=== PATIENT | female | born 1935 | race Caucasian/White ===

== ENCOUNTER 2017-02-08 19:45 | Inpatient (IN) | payer MEDICARE ==
[2017-02-08] VITALS (7 sets, daily range): BP systolic 123–169; BP diastolic 53–73; PULSE 77–92; RESP 14–17; O2SAT 98–100
[~2017-02-08] VITALS: Ht 160 cm; Wt 62.8 kg
[~2017-02-08 19:45] MED LIST: ALPR0.254 PO; AZEL137S11 NS; CARV6.252 PO; CLOP75TA28 PO; ESTR1PAT79 TD; LOSA25TA21 PO; LYSI500T3 PO; PRAM0.5T10 PO; SIMV40TA5 PO; TRIA1TAB3 PO
--- NOTE | 2017-02-08 19:48 | ED.REPORT ---
HPI-General Illness Date of Service Feb 08, 2017 ED Provider: Michael Jim DO Pt is a 81 year old female with a history of HTN who presents to the ED via EMS complaining of lightheadedness when standing onset today. She c/o associated weakness, diarrhea, and melena. She denies vomiting, ulcer, low blood pressure, and diverticulitis. Pt also denies history of anemia. The pt reports that she saw Dr. Liang early today and she was feeling well. She reports that she is taking blood thinners. Per EMS, the pt was orthostatic upon arrival with no SP. Nursing Notes Stated Complaint: SUDDEN ONSET OF WEAKNESS Chief Complaint: Lightheadedness Nursing Notes Reviewed: Yes Allergies: Coded Allergies: Penicillins (Verified Allergy, Intermediate, hives, 02/08/17) atorvastatin (Verified Allergy, Intermediate, MUSCLE ACHES, 02/08/17) lisinopril (Verified Allergy, Intermediate, COUGH, 02/08/17) miconazole (Verified Allergy, Intermediate, makes wound worse, 02/08/17) bacitracin (Verified Allergy, Unknown, 02/08/17) SORES DON'T HEAL carbidopa (Verified Allergy, Unknown, 02/08/17) neomycin (Verified Allergy, Unknown, 02/08/17) SORES DON'T HEAL polymyxin B (Verified Allergy, Unknown, 02/08/17) SORES DON'T HEAL Scheduled Azelastine HCl (Azelastine HCl) 137 Mcg/0.137 Ml [place].pump 137 MCG NS BID Carvedilol (Carvedilol) 6.25 Mg Tablet 6.25 MG PO BID Clopidogrel (Clopidogrel) 75 Mg Tablet 75 MG PO DAILY Estradiol 0.075 mg/24 hr Patch (Estradiol 0.075 mg/24 hr Patch) 1 Each Patch.tdwk 1 EACH TD QW Pramipexole Dihydrochloride (Pramipexole Dihydrochloride) 0.5 Mg Tablet 0.25 MG PO TID Simvastatin (Simvastatin) 40 Mg Tablet 40 MG PO HS Triamterene/HCTZ 37.5-25 mg (Triamterene/HCTZ 37.5-25 mg) 1 Each Tablet 1 EACH PO DAILY Scheduled PRN Alprazolam (Alprazolam) 0.25 Mg Tablet 0.25 MG PO TID PRN PRN For Anxiety Miscellaneous Medications Losartan Potassium (Losartan Potassium) 25 Mg Tablet 25 MG PO Lysine (Lysine) 500 Mg Tablet 500 MG PO General Time Seen by MD: 19:46 Chief Complaint Other (Lightheadedness) Hx Obtained From: EMS Arrived By: Ambulance Sudden in Onset?: No Onset Occurred: 1 - 4 hours ago Symptom Duration: Intermittent Severity: Current: No pain currently Severity: Maximum: No pain Recent Healthcare: Recent doctor visit Similar Sx Previous: No Past Medical History Past Medical History Arthritis HTN Past Surgical History Lore Ductis - Heart Reports: , Tonsillectomy Smoking History Never Smoker Social History Alcohol Use: Denies alcohol use Drug Use: Denies drug use Other Social History: Good social support Review of Systems Full Review of Systems Constitutional: Reports: Weakness - generalized GI: Reports: Diarrhea, Melena, Denies: Vomiting Neurologic: Reports: Change LOC, Lightheaded Physical Exam Vital Signs Vital Signs Date Time Temp Pulse Resp B/P Pulse Ox O2 Delivery O2 Flow Rate FiO2 02/08/17 22:33 83 14 151/53 99 Room Air 02/08/17 21:27 86 16 123/73 100 Room Air 02/08/17 20:01 92 129/73 02/08/17 19:59 87 146/63 02/08/17 19:50 36.4 77 16 169/59 100 Room Air Initial VS: Reviewed General/Constitutional: Well-developed, Well-nourished Head / Eyes: Atraumatic, Normocephalic, PERRL ENT: Mucous membranes moist, Conjunctiva normal, No scleral icterus Neck: Supple, Non-tender, Full range of motion Respiratory: Breath sounds normal, Clear to auscultation, No respiratory distress Cardiovascular: Regular rate & rhythm, Heart sounds normal, Intact distal pulses Abdomen / GI: Soft, Non-tender Extremities: Vascular intact, Neuro intact Skin: Warm, Dry, No cyanosis Neurologic: Alert, Oriented, Nonfocal Psychiatric: Mood/affect normal, Behavior normal General/Constitutional: Awake, Alert, Cooperative, Not toxic appearing Appearance / Presentation: Positive: Pale RECTUM: Heme positive dark charcoal colored stool. Interpretation & Diagnostics Lab Results Interpretation Result Diagram: 02/08/17193902/08/171939 Test 02/08/17 19:40 White Blood Count 11.4th/mm3 (3.8-10.1) Red Blood Count 2.88mil/mm3 (3.90-5.20) Hemoglobin 9.4g/dL (12.0-15.6) Hematocrit 27.2% (35.0-46.0) Mean Corpuscular Volume 94.4fL (81-100) Mean Corpuscular Hemoglobin 32.6pg (27.0-35.0) Mean Corpuscular Hemoglobin Concent 34.6% (32.0-37.0) Red Cell Distribution Width 11.8% (12.3-15.4) Platelet Count 190bil/L (150-400) Neutrophils (%) (Auto) 60.2% (40-74) Lymphocytes (%) (Auto) 32.2% (14-46) Monocytes (%) (Auto) 6.7% (4-12) Eosinophils (%) (Auto) 0.4% (0-5) Basophils (%) (Auto) 0.2% (0-3) Sodium Level 135mEq/L (134-144) Potassium Level 4.1mEq/L (3.5-5.2) Chloride Level 97mEq/L (97-108) Carbon Dioxide Level 22mmol/L (18-29) Blood Urea Nitrogen 77mg/dL (8-27) Creatinine 1.37mg/dL (0.57-1.00) Estimat Glomerular Filtration Rate 53mL/min (>59) Glucose Level 146mg/dL (60-99) Calcium Level 9.4mg/dL (8.5-10.1) Magnesium Level 1.6mg/dL (1.6-2.6) Total Bilirubin 0.3mg/dL (0.0-1.2) Aspartate Amino Transf (AST/SGOT) 19U/L (0-50) Alanine Aminotransferase (ALT/SGPT) 14U/L (0-32) Alkaline Phosphatase 30U/L (25-165) Troponin T < 0.010ug/L (0.0-0.011) Total Protein 5.7g/dL (6.4-8.4) Albumin 3.6g/dL (3.4-5.0) ECG Interpretation ECG Interpretation: Sinus rhythm with a rate of 78 Ventricular premature complex Left bundle branch block Time: 19:51 Interpreted by: ED physician CBC Interpretation WBC elevated, Hgb low, Platelets normal BMP / CMP Interpretation BUN elevated, Creatinine elevated X-Ray Chest Interpretation Chest Xray Interpretation: IMPRESSION: Aortic atherosclerosis and cardiomegaly. Dictated by: Kristi Arriaga M.D. on 02/08/2017 at 20:47 View: Portable, 1 view Interpretation / Wet Read by: Interpret - Radiologist Re-Eval/Medical Decision Med Decision/Clinical Course This is an acutely ill 81-year-old female who presents with presyncopal symptoms associated with black stools. She is found to be orthostatic and pale. Her stool is heme positive. Large bore IVs were placed. She received a fluid bolus. She has been crossmatched 2 units. She is anemic. Protonix bolus and drip given. Based on the laboratory work and risk factors I suspect this is an upper GI bleed. I consulted with cardiology. Gastroenteritis consultation as well. Hospitalist admission. Source of Hx: Old records Time of Eval: 21:20 Patient Status: Condition improved Evaluation: Capillary refill improved Re-Evaluation/Progress Note: Pt rechecked. Informed pt of plan for admit. Pt understands and agrees with plan for admit. All questions addressed. Consultation #1: Referral / Consult Name: Ang Vásquez MD Call Returned at: 20:56 Inspector Sheet Metal Parts: Agrees with eval, Agrees with plan Note: Consulted with Gastroenterology. Consultation #2: Referral / Consult Name: Venkata Teague MD Consulted With: Hospitalist Call Returned at: 21:15 Inspector Sheet Metal Parts: Will see patient, Agrees with eval, Agrees with plan, Accepts admit Consultation #3: Referral / Consult Name: Miah Casiano MD Call Returned at: 20:39 Inspector Sheet Metal Parts: Agrees with eval, Agrees with plan Note: Consult with Dr. Casiano. He reported that she looked fine when he saw her in his office this morning. Counseled Regarding: Diagnosis, Lab results, Need for admission Discharge & Departure Primary Impression: Upper GI bleed Additional Impression: Anemia Anemia type: unspecified type Qualified Code: D64.9 - Anemia, unspecified Disposition: ADMITTED TO HOSPITAL Discharge Condition All VS Reviewed: Yes Condition: Stable Referrals: Luzmaria Osullivan MD (PCP) Crit Care Except Billable Proc Time Spent: 30-74 minutes (60 minutes) Services Performed: Patient management by me, Time spent at bedside, Discussing patient care, Documentation in record, Time with fam/surrogate, Other Scribe Attestation Portions of this note were transcribed by Tatiana Espinal. I, Dr. Jim personally performed the history, physical exam and medical decision-making; I reviewed and confirmed the accuracy of the information in the transcribed note. Signed by: Tyrel Shi, 02/08/17 and 22:30. copies to: Luzmaria Osullivan MD, Todd P DO Feb 08, 2017 19:48 Tatiana Mercado Feb 08, 2017 20:33
[2017-02-08 19:58] LABS: BASOPHILS % (AUTO) 0.2 % (0-3); EOSINOPHILS % (AUTO) 0.4 % (0-5); MONOCYTES % (AUTO) 6.7 % (4-12); Mean Corpuscular Hemoglobin 32.6 pg (27.0-35.0); Mean Corpuscular Volume 94.4 fL (81-100); NEUTROPHILS % (AUTO) 60.2 % (40-74); Platelet Count 190 bil/L (150-400)
[2017-02-08] MEDS ORDERED: Pantoprazole Inj 80 MG, Pharmacy To Mix 1 EA in 0.9% Sodium Chloride 80 ML IV ONE ×2 (20:35)
[2017-02-08] MEDS ORDERED: Pantoprazole 4 mg/mL 10 mL Inj IVPUSH ONE (20:35)
[2017-02-08 20:49] LABS: Magnesium 1.6 mg/dL (1.6-2.6)
--- NOTE | 2017-02-08 20:49 | DRSVH ---
PROCEDURE: X-RAY CHEST ONE VIEW, PORTABLE ([id number]) INDICATIONS: weakness TECHNIQUE: One view of the chest was acquired. COMPARISON: [facility], , CHEST 2VW, 05/21/2012, 15:02. FINDINGS: Surgical changes and devices: None. Lungs and pleura: No pleural effusions or pneumothorax. Lungs are clear. Mediastinum: Dense atheromatous calcifications are present at the aortic arch. The heart is enlarged. Bones and chest wall: No suspicious bony lesions. Overlying soft tissues appear unremarkable. IMPRESSION: Aortic atherosclerosis and cardiomegaly. Dictated by: Kristi Arriaga M.D. on 02/08/2017 at 20:47 Approved by: Kristi Arriaga M.D. on 02/08/2017 at 20:48
[2017-02-08 20:52] LABS: TROPONIN T < 0.010 ug/L (0.0-0.011)
[2017-02-08] MEDS ORDERED: Alum-Mag Hydrox-Simeth 30 mL Suspension PO PRN (22:35)
[2017-02-08] MEDS ORDERED: Polyethylene Glycol (PEG) 17 Gm Powder PO PRN (22:35)
[2017-02-08] MEDS ORDERED: Ondansetron 2 mg/mL 2 mL Inj IVPUSH PRN (22:35)
[2017-02-09] VITALS (17 sets, daily range): BP systolic 84–168; BP diastolic 48–72; PULSE 83–105; RESP 15–20; O2SAT 97–99
[2017-02-09 01:19] LABS: INR 1.05 ratio
[2017-02-09] MEDS ORDERED: DICL100G8 TOPICAL ×2 (02:11→17:39)
[2017-02-09] MEDS ORDERED: TRAZ-115 PO (02:11)
[2017-02-09] MEDS ORDERED: DIPH1TAB PO (02:11)
--- NOTE | 2017-02-09 02:19 | NUR ---
Admit Assumed care of patient at 0110. Received report from JAYDE Horvath. Patient resting comfortably in bed, A&Ox3, FLOREZ, denies pain. Protonix gtt infusing at 10 ml/hour. Admit documentation and med reconciliation completed.
--- NOTE | 2017-02-09 02:51 | PCM.HPMED ---
Subjective Date of Service Feb 09, 2017 Primary Provider: Admitting Physician: Venkata Teague MD Primary Care Physician: Luzmaria Osullivan MD Attending Physician: Venkata Teague MD Admit Status: From the Emergency Department Chief Complaint: Lightheadedness History of Present Illness: The patient is a 81-year-old female with past medical history remarkable for aortic regurgitation and an ascending aortic aneurysm as well as aortic arch atherosclerotic ulceration who presents with worsening lightheadedness and associated dark stools. The patient states that she was seen in her photoengraving retoucher's office today and was reported as feeling fine at that time however she reports that since that time she has become increasingly lightheaded. The patient denies any vertigo, shortness of breath, chest pain, abdominal pain or distention, or nausea. The patient states that about a week prior she began to notice dark colored stools with black pill size irregularities. The patient denies iron supplements or Pepto-Bismol. The patient also denies any urinary symptoms including dysuria, increased urgency or frequency. The patient denies any previous episodes similar to this in the past. The patient does admit to a recent 10 pound weight loss which was unexpected and admits to recent mild anorexia but denies significant night sweats. Review of Systems: A comprehensive review of systems is obtained and all are negative except for what is included in the history of present illness. Allergies Coded Allergies: Penicillins (Verified Allergy, Intermediate, hives, 02/08/17) atorvastatin (Verified Allergy, Intermediate, MUSCLE ACHES, 02/08/17) lisinopril (Verified Allergy, Intermediate, COUGH, 02/08/17) miconazole (Verified Allergy, Intermediate, makes wound worse, 02/08/17) bacitracin (Verified Allergy, Unknown, 02/08/17) SORES DON'T HEAL carbidopa (Verified Allergy, Unknown, 02/08/17) neomycin (Verified Allergy, Unknown, 02/08/17) SORES DON'T HEAL polymyxin B (Verified Allergy, Unknown, 02/08/17) SORES DON'T HEAL Home Medications Azelastine HCl 137 MCG IN EACH NOSTRIL BID Carvedilol 6.25 MG PO BID Clopidogrel 75 MG PO DAILY Estradiol 0.075 mg/24 hr Patch 1 Each Patch.tdwk 1 EACH TD QW Pramipexole Dihydrochloride 0.25 MG PO TID Simvastatin 40 MG PO HS Triamterene/HCTZ 37.5-25 mg 1 EACH PO DAILY Losartan Potassium 25 MG PO Lysine 500 MG PO Zyrtec 10 mg daily Trazodone 50 mg taken as needed at bedtime Medication records indicates Alprazolam 0.25 mg take 1-2 tablets as needed for anxiety Aspirin 81 mg daily Lomotil 2.5 mg 0.025 mg tablet take 2 tablets 4 times daily as needed PMH Aortic regurgitation Ascending aortic aneurysm Ulcerated aortic atherosclerosis Left-sided Carotid artery stenosis History of TIA Displacement of lumbar intravertebral disc Hyperlipidemia Hypertension Carpal tunnel syndrome bilaterally Anxiety Bilateral foot pain Seasonal allergies Chronic neck pain Chronic foot pain History of squamous cell carcinoma History of malignant melanoma treated History of basal cell carcinoma Surgical History Patient reports a history of aortic valve surgery at 22 years of age Tonsillectomy and adenoids section Family History Father had a myocardial infarction at age 74 Mother had strokes in her 60s and of a myocardial infarction in her 70s Patient has a brother and 2 sisters reportedly alive and well Social History Occupation: retired teacher Hx Alcohol Use: No Hx Substance Use: No Hx Tobacco Use: No Smoking Status: Never Smoker Living Arrangement: with Family Exam Vital Signs Vital Sign - Last Date Time Temp Pulse Resp B/P Pulse Ox O2 Delivery O2 Flow Rate FiO2 02/08/17 23:20 36.8 80 17 164/65 98 Room Air Exam General: well-nourished elderly female appearing approximately stated age, alert and cooperative in no acute distress Eyes: Pupils equal round react to light, extraocular motion intact, anicteric sclera, noninjected conjunctiva HENT: Normocephalic, atraumatic. Moist mucous membranes without central cyanosis oropharynx clear without cobblestoning mucosa Neck: supple with full range of motion. No Thyromegaly or JVD noted Cardiovascular: Regular rate and rhythm, 2/6 diastolic murmur present at right upper sternal border, without rubs or gallops noted Chest & Lungs: Clear to auscultation bilaterally, without wheezing noted and normal respiratory effort Abdomen: Non-tender, Non-distended, No masses, Normoactive bowel tones, Soft. Vertical surgical scar noted Musculoskeletal: Normal Range of Motion Extremities: No cyanosis, clubbing, or edema noted, pulses intact bilaterally at radial and dorsalis pedis Neurological: Alert, oriented 3, nonfocal neurologic assessment patient is able to move all extremities spontaneously Psych: Normal mood and affect. Lab and Diagnostics Result Diagram: 02/08/17193902/08/171939 X-Rays, CTs and MRIs X-RAY CHEST ONE VIEW, PORTABLE ([id number]) IMPRESSION: Aortic atherosclerosis and cardiomegaly. Dictated by: Kristi Arriaga M.D. on 02/08/2017 at 20:47 Approved by: Kristi Arriaga M.D. on 02/08/2017 at 20:48 Assessment & Plan The patient is a 81-year-old female with past medical history remarkable for aortic regurgitation and an ascending aortic aneurysm as well as aortic arch atherosclerotic ulceration who presents with worsening lightheadedness and associated dark stools. # Acute blood loss anemia - Patient admits to melena with symptoms of fatigue and lightheadedness making upper GI blood loss most likely - Hemoglobin at admission 9.4 and hemoglobin performed at 3 AM showed decreased to hemoglobin of 7.8 - Patient typed and crossmatched for 2 units of blood with an order to give 1 unit of blood and repeat hemoglobin and hematocrit - GI was consulted from the emergency department with consideration for EGD - Patient is made nothing by mouth for possible procedure in the a.m. - Patient is on chronic aspirin and Plavix for history of TIA these will be held however consideration for a sixpack of platelets in the face of platelet inhibition was considered but declined overnight # Likely upper GI bleed - Patient has a edema description of melena with positive stool guaiac and with elevated BUN making GI bleed likely - Patient does not describe any shortness of breath or history of retching making Boerhaave or Julisa-Almaraz less likely - Patient has no history of hepatitis or significant alcohol use making varicosities unlikely - Consider peptic ulcer disease versus possible neoplasm given the patient's description of recent 10 pound weight loss over 2 months with mild anorexia the most likely - GI has been consulted and medicine appreciates their time and recommendations - Initiation of blood transfusions as described above with 1 unit PRBC being held - Pantoprazole drip initiated in the ED maintained on the floor # Chronic kidney disease stage III - Creatinine today is 1.37 mildly elevated from possible baseline of 1.2 - Records indicate that the patient has had a creatinine level at about 1.2 since 2007 - Likely due to possible prerenal azotemia - The patient was started on IV fluids prior to blood transfusions # Chronic hypertension - Patient's blood pressure meds were held given the patient has a GI bleed and has been made nothing by mouth - Metoprolol 5 mg given overnight after fluid resuscitation and blood products given in an attempt to decrease blood pressure thereby decreasing bleeding # Chronic descending aortic aneurysm with ulcerated aortic atherosclerosis - Patient denies chest pain - Vital signs are stable - Type blood pressure control - Likely continue statin therapy once no longer nothing by mouth - Monitor # Chronic aortic regurgitation - Monitor # History of TIA - Patient has been on chronic aspirin and Plavix - Holding aspirin and Plavix at this time given patient's bleeding status DVT prophylaxis: Contraindicated at this time GI prophylaxis: Pantoprazole drip described above CODE STATUS full The patient is admitted to inpatient status given presenting symptoms, likely diagnosis, possible complications and required treatment expected length of stay is greater than tube midnights. Pain Evaluation: Adequate Pain Control GI Prophylaxis: Proton Pump Inhibitor VTE Prophylaxis Indicated: Contraindicated VTE Prophylaxis: SCDs VTE Mechanical Devices: Intermittant Pneumatic CD Resuscitation Status: CPR: Attempt Resuscitation Attending Statement The patient was seen and examined together with Dr. Finn on 02/08 and I agree with the history, exam and plan as outlined in the note above. Gian Poole DO Feb 09, 2017 02:08 Venkata Teague MD Feb 09, 2017 08:02
[2017-02-09] MEDS ORDERED: 0.9% Sodium Chloride 1,000 ML IV SCH (03:25)
[2017-02-09] MEDS ORDERED: MeTOProlol 1 mg/mL 5 mL Inj IVPUSH ONE (03:25)
[2017-02-09] MEDS ORDERED: 0.9% Sodium Chloride 250 ML IV PRN (03:35)
[2017-02-09] MEDS: 0.9% Sodium Chloride 1,000 ML IV SCH ×2 (03:49→14:02)
--- NOTE | 2017-02-09 04:05 | NUR ---
Syncope Patient up to commode with AIRCRAFT DELIVERY CHECKER assist at 0300. When getting back to bed, AIRCRAFT DELIVERY CHECKER reported that patient did not feel well and then appeared to "pass out" and became unresponsive when sitting on the edge of the bed. AIRCRAFT DELIVERY CHECKER reports patient unresponsive for approximately 10 seconds. Patient already alert and oriented by the time nurse arrived at bedside. Eyes PERRLA, smile symmetrical, speech clear, bilateral strip catcher strength equal. Patient reports that she had felt weak on the commode prior to the episode. Night hospitalist made aware, new orders for NS @ 100 initiated.
[2017-02-09] MEDS: Pantoprazole Inj 80 MG in 0.9% Sodium Chloride 80 ML IV SCH ×2 (07:13→20:14)
[2017-02-09 08:00] LABS: APPEARANCE,URINE HAZY (CLEAR,HAZY); COLOR,URINE STRAW (YELLOW); OCCULT BLOOD,URINE SMALL (NEGATIVE); PH,URINE 5.5 (5.0-8.0); UROBILINOGEN,URINE NORMAL (NORMAL)
[2017-02-09] MEDS ORDERED: Propofol 10 mg/mL 20 mL Inj ONE (11:04)
[2017-02-09] MEDS ORDERED: Lactated Ringer's 1,000 ML IV ONE (16:22)
--- NOTE | 2017-02-09 17:22 | CONS ---
[address] [address] CONSULTATION REPORT PATIENT: LESTER MENDENHALL : 1935 MR#: [id number] ADMIT: 02/08/2017 JOB ID: [id number] DATE OF SERVICE: 02/09/2017 It was a pleasure seeing this patient at [facility] for anemia. This is an 81-year-old lady with past medical history of aortic regurgitation, ascending aortic aneurysm as well as aortic arch atherosclerotic ulceration who has history of TIA, left-sided carotid stenosis, carpal tunnel syndrome, chronic neck pain, tonsillectomy, history of aortic valve surgery 22 years of age, , who came in taking aspirin and Plavix. The patient was doing well and had a couple of episodes of black stools which caused her to have lightheadedness. Initially, what happened was she went to the cardiology office and reported feeling fine. However, she indicated that she may get lightheaded occasionally and weak before she saw the chucking machine set up operator, noted dark stools. She had a large amount of black stools yesterday, but she has not had any significant bowel movements since she has been in the hospital. She was placed on IV Protonix. She was noted to be anemic, and in the emergency department her hemoglobin was 9.4, she was 7.8 in the morning and now after 2 units it is 9.4. Currently, she is doing well. Denies any nausea, vomiting, fever, chills, headaches, blurred vision, dizziness, lightheadedness, chest pain, shortness of breath, abdominal pain, blood in the stools. She did have black stools but not since she has been admitted. PAST MEDICAL HISTORY: Includes aortic regurgitation, ascending aortic arch aneurysm, ulcerated atherosclerosis, left-sided carotid artery stenosis, TIA, displaced lumbar vertebral disk, hyperlipidemia, high blood pressure, carpal tunnel, anxiety, bilateral foot pain, seasonal allergy, chronic neck pain, chronic foot pain, history of squamous cell carcinoma, history of malignant melanoma, history of basal cell carcinoma. PAST SURGICAL HISTORY: Aortic valve surgery at age 22, tonsillectomy and adenoidectomy, . FAMILY HISTORY: ME. SOCIAL HISTORY: She is a retired teacher. No alcohol, tobacco or recreational drugs. MEDICATIONS: 1. Pantoprazole. 2. Lactated Ringer. 3. PEG. 4. Senna. 5. Zofran. 6. Maalox. PHYSICAL EXAMINATION: Patient is alert, oriented, comfortable. Vitals: Temp 36.4, pulse 86, respirations 16, blood pressure 165/72. Head and neck: No icterus, no lymphadenopathy. Lungs: Clear. Cardiovascular: Regular rate and rhythm. Normal S1, S2. Abdomen: Soft, nontender, nondistended with normoactive bowel sounds. Extremity: No pitting edema about the ankles. Skin shows no jaundice. Radial pulses: Bilateral, strong and intact. LABORATORY DATA: Hemoglobin 9.4, platelets are 190,000, INR 1.05. BUN 77, creatinine 1.37. Normal LFTs. IMPRESSION and PLAN: This is an 81-year-old lady who has melenic stools intermittently for about a week, more episodes recently with presenting with symptomatic anemia requiring 2 units of blood transfusion. She is on Protonix drip. It appeared that aspirin and Plavix was stopped by the primary service. I think it is reasonable to do an upper endoscopy to rule out ulcer, and we will need to risk stratify and determine whether or not continued aspirin and Plavix would be a reasonable thing to do. At home, she was not taking any PPI. If she is on PPI with aspirin and Plavix, this may be more ideal to decrease the potential risk of ulcer formation. However, I will defer the need for aspirin and Plavix to the primary service, and aspirin and Plavix can be managed through the primary service and I will defer this to them. SHARON
--- NOTE | 2017-02-09 17:28 | PCM.ENDEGD ---
EGD Date of Service: Feb 09, 2017 Physician Venkata Teague MD Pre Procedure Diagnosis: Melena Post Procedure Dx & Findings: Esophagitis Schatzki's ring gastric ulcer duodenal the erosions Procedure Esophagogastroduodenoscopy PROCEDURE IN DETAIL: After proper sedation, Olympus video endoscope was inserted into patient's mouth and esophagus was successfully intubated. Scope introduced esophagus. Esophagus showed normal shiny whitish mucosa consistent with squamous cell component. Z line was at 40 cm from the incisors. Esophageal irritation noted as well as a nonobstructing Schatzki's ring. Stomach further advanced to the stomach. Stomach showed normal shiny mucosa with normal appearing rugae folds. Then in the antrum, significant antral deformity with edema and multiple clean -based ulcers are noted. One was a punctate several were linear. Sampling biopsies obtained. Sizes varied between 3 mm to about a centimeter. The larger ones are more linear ulcers.. Cardia fundus body antrum pylorus were all visualized. Retroflexion was done. Stomach was easily inflated and deflatable using air. Scope further events to the distal duodenum. Duodenal bulb and the first pass showed superficial erosions. And some appeared to be healing erosions. Impression Esophagitis Schatzki's ring nonobstructing Gastric ulcers clean base biopsies obtained Duodenal erosions noted. Recommendation Continue PPI Clears and advance as tolerated Will defer the resumption of Plavix and aspirin to the primary care service. Presedation Assessment Risks and Benefits Informed consent was obtained from the patient after all risks and benefits including but not limited to drug reaction, infection, pain, bleeding, perforation, as well as alternatives were discussed. Patient monitoring Continuous pulse oximetry, cardiac monitoring, blood pressure monitoring, IV access, and oxygen at 2L per nasal cannula. Complications There were no periprocedural complications identified. Post Procedure Plan Post Procedure Recommendations 1. Restrict activities today. 2. Resume normal activities in the morning. 3. Resume medications. 4. GERD behavioral modification: - Avoid fatty, acidic, spicy, large meals - Do not lie down after meals - Do not eat or drink anything for at least 2 1/2 hours before going to bed at night - Discontinue tobacco and alcohol - Decrease or avoid caffeine - Avoid chocolate and mints - Decrease weight - Avoid aspirin and non steroidal anti-inflammatory agents (NSAID) such as Aleve, Advil, Mobic, Naproxen, Ibuprofen, etc 5. Add proton pump inhibitor. Take 30 minutes before 1st meal of the day. 6. Patient informed of normal post procedure side effects as bloating, drowsiness, blood streaking in the stool 7. If gastric biopsy reveal H.pylori, continue with appropriate treatment 8. If small bowel biopsy reveals celiac, continue with appropriate treatment 9. Please don't hesitate to call me with any questions Ang Vásquez MD Feb 09, 2017 17:28
[2017-02-09] MEDS ORDERED: ROSU40TA PO (17:35)
[2017-02-09] MEDS ORDERED: LOSA25TA21 PO (17:39)
--- NOTE | 2017-02-09 17:54 | PCM.HPANE ---
Patient Data Surgeon Admitting Provider:Venkata Teague MD Attending Provider:Venkata Teague MD Primary Care Physician:Luzmaria Osullivan MD Other Provider: Reason for Visit Gi Bleed/Anemia Ht/WT & BMI Height (Feet): 5 Height (Inches): 3.00 Weight (Kilograms): 63.300 Body Mass Index 24.73 Allergies Coded Allergies: Penicillins (Verified Allergy, Intermediate, hives, 02/08/17) atorvastatin (Verified Allergy, Intermediate, MUSCLE ACHES, 02/08/17) lisinopril (Verified Allergy, Intermediate, COUGH, 02/08/17) miconazole (Verified Allergy, Intermediate, makes wound worse, 02/08/17) bacitracin (Verified Allergy, Unknown, 02/08/17) SORES DON'T HEAL carbidopa (Verified Allergy, Unknown, 02/08/17) neomycin (Verified Allergy, Unknown, 02/08/17) SORES DON'T HEAL polymyxin B (Verified Allergy, Unknown, 02/08/17) SORES DON'T HEAL Past Anesthesia History Anesthesia History: Denies:: Abnormal Airway, Anesthesia Reactions, Difficult Intubation, Fam Anesthesia Reaction, Fam Malignant Hypertherm, Malignant Hyperthermia Diabetes History Hx Diabetes?: No MRSA MRSA: No Medications Blood Thinner: Plavix Reported Medications Losartan Potassium 25 Mg [id number] Mg PO DAILY 02/09/17 Diclofenac Gel (Voltaren Gel)100 Gm Tube1 Applic TOPICAL BID #1 TUBE APPLY TO AFFECTED AREA TWICE DAILY 02/09/17 Rosuvastatin Calcium (Crestor)40 Mg Llonay14 Mg PO HS 30 Days Ref 0 02/09/17 Diphenoxylate/Atropine 2.5-0.025 mg (Lomotil 2.5-0.025 mg)1 Each Tablet1 Tablet PO DAILY PRN For Diarrhea or Loose Stool May take up to 8 tablets per day 02/09/17 Trazodone 50 Mg Hsriug01-09 Mg PO HS Ref 0 02/09/17 Azelastine HCl 137 Mcg/0.137 Ml [place].[email or web address] Sprays NS BID PRN For Congestion 09/05/14 Clopidogrel 75 Mg Qudbvo39 Mg PO DAILY 30 Days Ref 0 08/25/14 Estradiol 0.075 mg/24 hr Patch 1 Each Patch.tdwk1 Each TD QW 30 Days Ref 0 08/25/14 Alprazolam 0.25 Mg Tablet0.25 Mg PO BID PRN For Anxiety 30 Days Ref 0 08/25/14 Triamterene/HCTZ 37.5-25 mg 1 Each Tablet1 Each PO DAILY 0 30 Days 08/25/14 Carvedilol 6.25 Mg Tablet6.25 Mg PO BID Ref 0 08/25/14 Lysine 500 Mg Vevjci364 Mg PO DAILY 08/25/14 Pramipexole Dihydrochloride 0.5 Mg Tablet0.25 Mg PO DAILY 08/25/14 Discontinued Reported Medications Diclofenac Gel (Voltaren Gel)100 Gm Tube1 Applic TOPICAL #1 TUBE 02/09/17 Simvastatin 40 Mg Hyymvl36 Mg PO HS 30 Days Ref 0 08/25/14 Losartan Potassium 25 Mg Aofzxs48 Mg PO 08/25/14 History History of ENT Problems?: No HEENT History: Denies:: Abnormal Airway Difficult Intubation Dysphagia Hearing Problem Denture Type: None Teeth Condition: Within Normal Limits Hx of Heart Problems?: Yes Cardiovascular History: Positive for:: Cardiac Surgery (PDA) Hypertension Denies:: AICD Atrial Fibrillation Chest Pain Congestive Heart Failure Edema Heart Murmur Irregular Heartbeat Pacemaker Thrombophlebitis Valvular Heart Disease Other Cardiac History: rheumatic fever Hx of Respiratory Problem?: No Respiratory History: Denies:: Asthma COPD Cough Hemoptysis Pneumonia Tuberculosis Hx Neurologic Problems?: Yes Neurological History: Positive for:: Dizziness (this admit) Denies:: Alzheimer's Disease CVA (TIA) Dementia Headaches Parkinson's Disease Seizures Hx of GI Problems?: Yes Hx of Problems?: No Female Hx: Denies:: Currently Endometriosis Pelvic Inflammatory Problems with Breasts? Hx Musculoskeletal Problems?: Yes Musculoskeletal History: Positive for:: Back Injury (back pain; wears a brace sometimes) Denies:: Joint Replacement Musculoskeletal Trauma Hx of Psycho/Social Problems?: No Psycho Social History: Denies:: Anxiety Hx Depression Hx Surgeries?: Yes (hysterectomy, mole removals) Hx Any Other Health Problems?: Yes Other History: Positive for:: Cancer (melanoma right leg) Hospitalization (skin cancer surgeries) Denies:: Thyroid Disease History Blood Transfusions: Positive for:: Accept Blood Products? Denies:: Blood Transfuse Reaction Blood Transfusions Hx Diabetes: No Occupation: retired teacher Hx Alcohol Use: NoHx Substance Use: No Smoking Status: Never Smoker Stop/Bang Treated for Sleep Apnea?: No Do You Have a CPAP Machine?: No S-Snoring: Do You Snore Loudly: No T-Tired: feel tired, fatigued: No O-Obsered: Observed not breath: No P-Blood Pressure: treated: Yes B- Body Mass Index > 35 kg/m2: No A- Age over 50: Yes N- Neck Large Circumference: No G- Gender Male: No DEN Total Score: 1 Risk Assessment Category Category 1A: Patient has history of documented sleep apnea, and HAS NOT received any narcotic, sedative or anesthesia administration during this stay. Category 1B: Patient has history of documented sleep apnea, and HAS received any narcotic , sedative or anesthesia administration during this stay Category 2: Patient has SUSPECTED Obstructive Sleep Apnea, and HAS received any narcotic , sedative or anesthesia administration during this stay. Category 3: Patient has SUSPECTED Obstructive Sleep Apnea and HAS NOT received narcotic, sedative or anesthesia administration during this stay. Category 4: Outpatient in Procedural Areas with known sleep apnea or who screen positive for High Risk via the STOP/BANG questionnaire. Exam Exam Vital Signs Vital Signs Date Time Temp Pulse Resp B/P Pulse Ox O2 Delivery O2 Flow Rate FiO2 02/09/17 11:19 83 18 118/65 99 Room Air 02/09/17 11:18 93 18 126/66 97 02/09/17 11:17 36.8 91 16 149/71 99 Room Air 02/09/17 08:57 87 General Appearance: Alert, Oriented X3, Cooperative, No Acute Distress HEENT/AIRWAY: MP 2 Lungs: Clear to Auscultation Heart: Exam Unremarkable Meds/Labs/Diagnostics Admission Meds Current Medications Pantoprazole 80 mg 80 mg STAT ONCE IVPUSH Last administered on 02/08/17 21:13 ; Start 02/08/17 at 20:35; Stop 02/08/17 at 20:37; Status DC Pantoprazole 80 mg/Miscellaneous 1 ea/Sodium Chloride 100 ml @ 10 mls/hr ONCE ONCE IV Last administered on 02/08/17 21:13; Start 02/08/17 at 20:35; Stop at 06:34; Status DC Pantoprazole 80 mg/Sodium Chloride 100 ml @ 10 mls/hr Q10H IV Last administered on 02/09/17 07:13; Start 02/09/17 at 06:30 Sodium Chloride (Normal Saline) 1,000 ml @ 100 mls/hr Q10H IV Last administered on 02/09/17t 14:02; Start 02/09/17 at 03:00 Labs Test 02/08/17 19:40 02/09/17 06:55 02/09/17 07:52 02/09/17 08:44 White Blood Count 11.4th/mm3 (3.8-10.1) Red Blood Count 2.88mil/mm3 (3.90-5.20) Mean Corpuscular Volume 94.4fL (81-100) Mean Corpuscular Hemoglobin 32.6pg (27.0-35.0) Mean Corpuscular Hemoglobin Concent 34.6% (32.0-37.0) Red Cell Distribution Width 11.8% (12.3-15.4) Platelet Count 190bil/L (150-400) Neutrophils (%) (Auto) 60.2% (40-74) Lymphocytes (%) (Auto) 32.2% (14-46) Monocytes (%) (Auto) 6.7% (4-12) Eosinophils (%) (Auto) 0.4% (0-5) Basophils (%) (Auto) 0.2% (0-3) Prothrombin Time 11.3sec (8.1-12.5) Prothromb Time International Ratio 1.05ratio Activated Partial Thromboplast Time 22.9sec (22.8-33.0) Sodium Level 135mEq/L (134-144) Potassium Level 4.1mEq/L (3.5-5.2) Chloride Level 97mEq/L (97-108) Carbon Dioxide Level 22mmol/L (18-29) Blood Urea Nitrogen 77mg/dL (8-27) Creatinine 1.37mg/dL (0.57-1.00) Estimat Glomerular Filtration Rate 53mL/min (>59) Glucose Level 146mg/dL (60-99) Calcium Level 9.4mg/dL (8.5-10.1) Magnesium Level 1.6mg/dL (1.6-2.6) Total Bilirubin 0.3mg/dL (0.0-1.2) Aspartate Amino Transf (AST/SGOT) 19U/L (0-50) Alanine Aminotransferase (ALT/SGPT) 14U/L (0-32) Alkaline Phosphatase 30U/L (25-165) Troponin T < 0.010ug/L (0.0-0.011) Total Protein 5.7g/dL (6.4-8.4) Albumin 3.6g/dL (3.4-5.0) Urine Color Straw (YELLOW) Urine Appearance Hazy (CLEAR,HAZY) Urine pH 5.5 (5.0-8.0) Urine Specific [place] 1.005 (1.003-1.035) Urine Protein Negativemg/dL (NEG,TRACE) Urine Glucose (UA) Negativemg/dL (NEGATIVE) Urine Ketones Negativemg/dL (NEGATIVE) Urine Occult Blood Small (NEGATIVE) Urine Nitrite Negative (NEGATIVE) Urine Bilirubin Negative (NEGATIVE) Urine Urobilinogen Normalmg/dL (NORMAL) Urine Leukocyte Esterase Negative (NEGATIVE) Urine RBC 0-2/hpf (0-2) Urine WBC 0-5/hpf (0-5) Urine Epithelial Cells Occasional/hpf (NONE-MOD) Urine Crystals None seen (NONE SEEN) Urine Bacteria Moderate/hpf (NONE-FEW) Urine Hyaline Casts None/lpf (NONE) Urine Granular Casts None seen (NONE SEEN) Urine Waxy Casts None seen (NONE SEEN) Urine Red Blood Cell Casts None seen (NONE SEEN) Urine White Blood Cell Casts None seen (NONE SEEN) Urine Mucus None seen (None Seen) Urine Trichomonas None seen (NONE SEEN) Urine Yeast None (NONE SEEN) Urinalysis Comment None Urine Culture Reflexed Indicated Hemoglobin 9.4g/dL (12.0-15.6) Hematocrit 26.5% (35.0-46.0) Hold Urine Received (Received) Plan Impression Patient chart reviewed, patient interviewed and anesthestic plan with risks, benefits, and alternatives discussed, and informed consent obtained. ASA Physical Status: ASA2 Mod Systemic Disease Anesthetic Plan: MAC Bene/Risks/Altern/Consents: Yes HP Complete Prior to Induction: Yes Anastacio Wallace MD Feb 09, 2017 16:07
--- NOTE | 2017-02-09 19:23 | NUR ---
GI assessment patient has denies abdominal pain, N/V throughout shift. has complained of feeling tired and weak today. patient had one dark/tarry stool this am. Dr Concepcion aware. has been NPO throughout shift. EGD completed today and returned to [facility] at approx 1800hrs. continue to monitor and advance diet as tolerated.
[2017-02-10 00:29] VITALS: BP 151/74; PULSE 80; RESP 17; O2SAT 98
[2017-02-10] MEDS: 0.9% Sodium Chloride 1,000 ML IV SCH ×2 (00:49→09:00)
[2017-02-10 04:51] VITALS: PULSE 81
[2017-02-10 05:25] LABS: BASOPHILS % (AUTO) 0.3 % (0-3); EOSINOPHILS % (AUTO) 5.5 % (0-5); MONOCYTES % (AUTO) 8.4 % (4-12); Mean Corpuscular Hemoglobin 32.2 pg (27.0-35.0); Mean Corpuscular Volume 93.7 fL (81-100); NEUTROPHILS % (AUTO) 56.7 % (40-74); Platelet Count 113 bil/L (150-400)
[2017-02-10 05:45] LABS: Magnesium 1.6 mg/dL (1.6-2.6)
[2017-02-10 05:52] VITALS: BP 153/68; PULSE 82; RESP 17; O2SAT 98
--- NOTE | 2017-02-10 07:11 | NUR ---
Shoulder pain/mobility No signs of bleeding this shift. Has been upto bathroom with standby assist with steady gait. Denies dizziness or abdominal pain. C/o flareup of right shoulder pain, stating she's had this before. heat somewhat effective. Also, c/o not being able to sleep and requested home dose of Trazadone. MD notified and orders for Tylenol and home med Voltaren gel heat also applied. Pt stated this was helpful and that shoulder pain has improved this AM. Unfortunately, states sleeping med didn't help much and had a poor night's sleep. Tolerating liquids without problem and is ordering a soft diet this AM. Report to oncefrain DONOHUE.
[2017-02-10 08:00] VITALS: PULSE 90
[2017-02-10] MEDS ORDERED: Pantoprazole 40 mg ER24 Tablet PO SCH (08:10)
[2017-02-10] MEDS ORDERED: ALPRAZolam 0.25 mg Tablet PO PRN (09:20)
[2017-02-10] MEDS ORDERED: ASPI-973 PO (09:21)
[2017-02-10 09:22] VITALS: BP 128/55; PULSE 91; RESP 18; O2SAT 98
--- NOTE | 2017-02-10 09:35 | PCM.DIMED ---
Discharge Instructions Date of Service Feb 10, 2017 Dates of Hospitalization Feb 08, 2017 at 22:49 Discharge Diagnosis Discharge Diagnosis Upper GI bleeding secondary to Peptic ulcer disease Medication Instructions Additional med instructions Regimen was changed after discussion with Please note that aspirin was changed to 162mg two baby aspirin please stop taking clopidogrel(plavix) Please continue to take anti-acid medicine pantoprazole 40mg twice a day Diet Discharge Diet: Other Activity Discharge Activity: No restrictions Call your provider Call your provider for: Vomitting, Excessive diarrhea Patient Instructions Patient Instructions You were hospitalized with symptoms suggestive of upper GI bleeding. You underwent upper endoscopy which showed gastric ulcer and erosions in duodenum, Esophagitis, Schatzki's ring nonobstructing Please note that you have to follow up the result of the biopsy with in 2weeks Please follow up medicine instruction as above Please follow instruction from GI service - Avoid fatty, acidic, spicy, large meals - Do not lie down after meals - Do not eat or drink anything for at least 2 1/2 hours before going to bed at night - Discontinue tobacco and alcohol - Decrease or avoid caffeine - Avoid chocolate and mints - Decrease weight - Avoid aspirin and non steroidal anti-inflammatory agents (NSAID) such as Aleve, Advil, Mobic, Naproxen, Ibuprofen, etc Follow-up Provider: Luzmaria Osullivan MD Follow-up with PCP in: 2 weeks Amara Concepcion MD Feb 10, 2017 09:34
--- NOTE | 2017-02-10 10:42 | NUR ---
Social Work: Initial Assessment/Discharge D: EMR reviewed. Pt is a 81 y/o female admitted for GI bleed/anemia per H&P. NAM met with pt at bedside to conduct initial assessment. Pt was alert and oriented x3. SW explained role and wrote phone number on white board. Pt's insurance is [employer]. PCP is Luzmaria Osullivan MD . Pt gave verbal consent to contact listed [facility], friend Marylin Meyers ([phone]) for discharge planning. NAM confirmed pt has completed DPOA/advanced directive ppw and encouraged pt to provide a copy to the hospital. Pt has no hx of HH or a SNF. Pt does not have LTC insurance or VA benefits. Pt is independent with ADLs. Pt does not use any DME. Pt drives. Pt is independent at baseline. Pt lives with her spouse in a single-story duplex with 2 steps to enter in [place]. Pt states she cares for her spouse who has dementia and is connected with resources in the community through the CB. Per MD in AM multi-disciplinary rounds, does not anticipate any SW discharge needs and pt will discharge today. Pt states she will transport home via POV with friend today. NAM does not anticipate any discharge needs at this time but will continue to follow if needs arise. A: Pt who is independent at baseline. P: Pt to transport home via POV. NAM does not anticipate any discharge needs at this time but will continue to follow if needs arise. LORETO Bruce Addendum: 02/10/17 at 1108 by VIVIANA JOSE Amended: Links added.
[2017-02-10] MEDS ORDERED: PANT40TA3 PO (11:56)
--- NOTE | 2017-02-10 12:13 | NUR ---
Discharge Pt discharged home today at 12:05. Pt off floor via wheelchair with all belongings in the company of friend and the TERMINAL SUPERINTENDENT to private vehicle. Pt was provided with scripts for pantoprozole and aspirin. Pt was given follow up instructions, dietary precautions, and education materials on ulcers. All questions answered and pt voiced understanding.
--- NOTE | 2017-02-10 22:09 | PCM.DC.MED ---
Discharge Summary Date of Service Feb 10, 2017 Dates of Hospitalization Date of Hospital Admission Feb 08, 2017 at 22:49 Date of Discharge: Feb 10, 2017 Providers: Admitting Physician: Venkata Teague MD Primary Care Physician: Luzmaria Osullivan MD Attending Physician: Venkata Teague MD Diagnosis at Time of Discharge Diagnosis at Time of Discharge acute dx Upper GI bleeding secondary to Peptic ulcer disease in the setting of aspirin/ plavix use Acute blood loss anemia, chronic dx # Chronic kidney disease stage III, stable. 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 # Chronic aortic regurgitation, stable # History of TIA. Patient has been on chronic aspirin and Plavix, discussed as above Consultations GI Procedures XRay, CTs & MRIs X-RAY CHEST ONE VIEW, PORTABLE ([id number]) IMPRESSION: Aortic atherosclerosis and cardiomegaly. Dictated by: Kristi Arriaga M.D. on 02/08/2017 at 20:47 Approved by: Kristi Arriaga M.D. on 02/08/2017 at 20:48 Brief History HPI obtained by on 02/08 The patient is a 81-year-old female with past medical history remarkable for aortic regurgitation and an ascending aortic aneurysm as well as aortic arch atherosclerotic ulceration who presents with worsening lightheadedness and associated dark stools. The patient states that she was seen in her appeals and generalist clerk's office today and was reported as feeling fine at that time however she reports that since that time she has become increasingly lightheaded. The patient denies any vertigo, shortness of breath, chest pain, abdominal pain or distention, or nausea. The patient states that about a week prior she began to notice dark colored stools with black pill size irregularities. The patient denies iron supplements or Pepto-Bismol. The patient also denies any urinary symptoms including dysuria, increased urgency or frequency. The patient denies any previous episodes similar to this in the past. The patient does admit to a recent 10 pound weight loss which was unexpected and admits to recent mild anorexia but denies significant night sweats. Hospital Course The patient is a 81-year-old female with past medical history remarkable for aortic regurgitation and an ascending aortic aneurysm as well as aortic arch atherosclerotic ulceration who presents with worsening lightheadedness and associated dark stools. acute dx # Acute blood loss anemia, Patient admits to melena with symptoms of fatigue and lightheadedness was strongly suggestive of UGIB, Hemoglobin at admission 9.4 and hemoglobin performed at 3 AM showed decreased to hemoglobin of 7.8. pt received 2 units of blood. GI was consulted. EGD showed Esophagitis, Schatzki's ring nonobstructing, Gastric ulcers clean base biopsies obtained, Duodenal erosions noted. Given chronic aspirin, plavix tx, these were held on admission. PPI drip started later switched to po bid. After discussion with , it was recommended that pt should at least take aspirin, but no plavix at the moment given acute bleeding but ulcerated aortic atherosclerosis. Plan is to continue [id number], PPI 40mg bid, follow up the biopsy result from EGD with . chronic dx # Chronic kidney disease stage III, stable. 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 # Chronic aortic regurgitation, stable # History of TIA. Patient has been on chronic aspirin and Plavix, discussed as above Exam Vital Signs (Last) Date Time Temp Pulse Resp B/P Pulse Ox O2 Delivery O2 Flow Rate FiO2 02/10/17 09:22 36.6 91 18 128/55 98 Room Air Exam NAD RRR nls1 s2 no mrg CTAB, no w,c abdmen soft, ND,NT,BS+ warm, no edema Test 02/08/17 19:40 02/09/17 06:55 02/09/17 08:44 02/10/17 04:50 Prothrombin Time 11.3sec (8.1-12.5) Prothromb Time International Ratio 1.05ratio Activated Partial Thromboplast Time 22.9sec (22.8-33.0) Troponin T < 0.010ug/L (0.0-0.011) Urine Color Straw (YELLOW) Urine Appearance Hazy (CLEAR,HAZY) Urine pH 5.5 (5.0-8.0) Urine Specific [place] 1.005 (1.003-1.035) Urine Protein Negativemg/dL (NEG,TRACE) Urine Glucose (UA) Negativemg/dL (NEGATIVE) Urine Ketones Negativemg/dL (NEGATIVE) Urine Occult Blood Small (NEGATIVE) Urine Nitrite Negative (NEGATIVE) Urine Bilirubin Negative (NEGATIVE) Urine Urobilinogen Normalmg/dL (NORMAL) Urine Leukocyte Esterase Negative (NEGATIVE) Urine RBC 0-2/hpf (0-2) Urine WBC 0-5/hpf (0-5) Urine Epithelial Cells Occasional/hpf (NONE-MOD) Urine Crystals None seen (NONE SEEN) Urine Bacteria Moderate/hpf (NONE-FEW) Urine Hyaline Casts None/lpf (NONE) Urine Granular Casts None seen (NONE SEEN) Urine Waxy Casts None seen (NONE SEEN) Urine Red Blood Cell Casts None seen (NONE SEEN) Urine White Blood Cell Casts None seen (NONE SEEN) Urine Mucus None seen (None Seen) Urine Trichomonas None seen (NONE SEEN) Urine Yeast None (NONE SEEN) Urinalysis Comment None Urine Culture Reflexed Indicated Hold Urine Received (Received) White Blood Count 7.6th/mm3 (3.8-10.1) Red Blood Count 2.55mil/mm3 (3.90-5.20) Hemoglobin 8.2g/dL (12.0-15.6) Hematocrit 23.9% (35.0-46.0) Mean Corpuscular Volume 93.7fL (81-100) Mean Corpuscular Hemoglobin 32.2pg (27.0-35.0) Mean Corpuscular Hemoglobin Concent 34.3% (32.0-37.0) Red Cell Distribution Width 12.6% (12.3-15.4) Platelet Count 113bil/L (150-400) Neutrophils (%) (Auto) 56.7% (40-74) Lymphocytes (%) (Auto) 28.7% (14-46) Monocytes (%) (Auto) 8.4% (4-12) Eosinophils (%) (Auto) 5.5% (0-5) Basophils (%) (Auto) 0.3% (0-3) Sodium Level 142mEq/L (134-144) Potassium Level 3.5mEq/L (3.5-5.2) Chloride Level 110mEq/L (97-108) Carbon Dioxide Level 20mmol/L (18-29) Blood Urea Nitrogen 33mg/dL (8-27) Creatinine 1.16mg/dL (0.57-1.00) Estimat Glomerular Filtration Rate 64mL/min (>59) Glucose Level 93mg/dL (60-99) Calcium Level 8.6mg/dL (8.5-10.1) Phosphorus Level 2.0mg/dL (2.5-4.9) Magnesium Level 1.6mg/dL (1.6-2.6) Total Bilirubin 0.4mg/dL (0.0-1.2) Aspartate Amino Transf (AST/SGOT) 26U/L (0-50) Alanine Aminotransferase (ALT/SGPT) 16U/L (0-32) Alkaline Phosphatase 28U/L (25-165) Total Protein 4.9g/dL (6.4-8.4) Albumin 3.1g/dL (3.4-5.0) Discharge Medications Discharge Medications Aspirin (Aspirin) 81 Mg Tablet 162 MG PO DAILY Prescribed by: AMARA BURRELL MD Carvedilol (Carvedilol) 6.25 Mg Tablet 6.25 MG PO BID (Reported) Diclofenac Gel (Voltaren Gel) 100 Gm Tube 1 APPLIC TOPICAL BID (Reported) APPLY TO AFFECTED AREA TWICE DAILY Estradiol 0.075 mg/24 hr Patch (Estradiol 0.075 mg/24 hr Patch) 1 Each Patch.tdwk 1 EACH TD QW (Reported) Losartan Potassium (Losartan Potassium) 25 Mg Tablet 25 MG PO DAILY (Reported) Lysine (Lysine) 500 Mg Tablet 500 MG PO DAILY (Reported) Pantoprazole DR (Pantoprazole DR) 40 Mg Tablet.dr 40 MG PO BIDAC Prescribed by: AMARA BURRELL MD Pramipexole Dihydrochloride (Pramipexole Dihydrochloride) 0.5 Mg Tablet 0.25 MG PO DAILY (Reported) Rosuvastatin Calcium (Crestor) 40 Mg Tablet 40 MG PO HS (Reported) Trazodone (Trazodone) 50 Mg Tablet 25-50 MG PO HS (Reported) Triamterene/HCTZ 37.5-25 mg (Triamterene/HCTZ 37.5-25 mg) 1 Each Tablet 1 EACH PO DAILY (Reported) As needed Alprazolam (Alprazolam) 0.25 Mg Tablet 0.25 MG PO BID PRN PRN For Anxiety ( Reported) Azelastine HCl (Azelastine HCl) 137 Mcg/0.137 Ml [place].pump 2 SPRAYS NS BID PRN PRN For Congestion (Reported) Diphenoxylate/Atropine 2.5-0.025 mg (Lomotil 2.5-0.025 mg) 1 Each Tablet 1 TABLET PO DAILY PRN PRN For Diarrhea or Loose Stool (Reported) May take up to 8 tablets per day Additional med instructions Regimen was changed after discussion with Please note that aspirin was changed to 162mg two baby aspirin please stop taking clopidogrel(plavix) Please continue to take anti-acid medicine pantoprazole 40mg twice a day Followup Plan Disposition: home Discharge Diet: Other Discharge Activity: No restrictions Patient Instructions You were hospitalized with symptoms suggestive of upper GI bleeding. You underwent upper endoscopy which showed gastric ulcer and erosions in duodenum, Esophagitis, Schatzki's ring nonobstructing Please note that you have to follow up the result of the biopsy with in 2weeks Please follow up medicine instruction as above Please follow instruction from GI service - Avoid fatty, acidic, spicy, large meals - Do not lie down after meals - Do not eat or drink anything for at least 2 1/2 hours before going to bed at night - Discontinue tobacco and alcohol - Decrease or avoid caffeine - Avoid chocolate and mints - Decrease weight - Avoid aspirin and non steroidal anti-inflammatory agents (NSAID) such as Aleve, Advil, Mobic, Naproxen, Ibuprofen, etc Follow-up Provider: Luzmaria Osullivan MD Follow-up with PCP in: 2 weeks Time spent 65min Amara Burrell MD Feb 10, 2017 22:09
--- NOTE | 2017-02-13 14:12 | PATH ---
SURGICAL PATHOLOGY Attending Physician:Ang Vásquez M.D. CASE STATUS: Signed Out PATIENT NAME: LESTER MENDENHALL PID: [id number] : 1935 DATE COLLECTED:02/09/2017 00:00 SPECIMEN: Stomach, Antrum, Biopsy CLINICAL HISTORY: 1). ANTRUM BIOPSY, RULE OUT H.PYLORI FINAL DIAGNOSIS: 1.GASTRIC ANTRUM BIOPSY: GASTRIC ANTRUM WITH MILD CHRONIC GASTRITIS. Negative for Helicobacter organisms. Negative for intestinal metaplasia. No evidence of dysplasia or malignancy. ICD10 K29.70 GROSS DESCRIPTION: The specimen is received in formalin, labeled with the patient's name, sublabeled as antrum biopsy, and consists of a fragment of marcus, glistening, semi-translucent tissue (0.4 x 0.2 x 0.1 cm). Section code: (A) intact tissue. Specimen entirely submitted. ([id number]) MICRO DESCRIPTION: See diagnosis. ICD-9 CODES: CPT CODES: 1: 59711 Electronically Signed Out Taj Villatoro MD [facility] [address], [place] [address] Technical component performed at [facility], [address] [place] [address] Ave[address], [place], [address]
== END 2017-02-10 12:10 | disposition home or self-care (01) | DRG 378 ==
LOC: SED 19:45 → OSC 22:49 → OBSVTOIN 22:49
PROVIDERS: ADMIT Hospitalist; ATTEND Hospitalist
PROC: 30233N1 Transfusion of Nonautologous Red Blood Cells into Peripheral Vein, Percutaneous Approach (ICD-10-PCS; 2017-02-09)
PROC: 0DB68ZX Excision of Stomach, Via Natural or Artificial Opening Endoscopic, Diagnostic (ICD-10-PCS; principal; 2017-02-09 15:45)
DX: K25.0 Acute gastric ulcer with hemorrhage (principal); D62 Acute posthemorrhagic anemia; E78.5 Hyperlipidemia, unspecified; I71.9 Aortic aneurysm of unspecified site, without rupture; I12.9 Hypertensive chronic kidney disease with stage 1 through stage 4 chronic kidney disease, or unspecified chronic kidney disease; N18.3 Chronic kidney disease, stage 3 (moderate); Z79.82 Long term (current) use of aspirin; Z88.0 Allergy status to penicillin